=== PATIENT | male | born 1995 | race Caucasian/White ===

== ENCOUNTER 2022-08-03 13:56 | Outpatient (REF) | payer OTHER, SELFPAY ==
--- NOTE | ~2022-08-03 | XR_ITS ---
EXAMINATION: XR WRIST, LEFT XR HAND, LEFT CLINICAL INFORMATION: Pain in left hand COMPARISON: None available. TECHNIQUE: 3 views of the left hand including wrist FINDINGS: LEFT WRIST: Scaphoid: There is a transverse fracture through the waist of scaphoid with sclerotic change or possibly cystic change on either side of the fracture. Normal alignment. LEFT HAND: There is subtle areas of lucency at the articular surface of the base of the second metacarpal as well as along the radial cortex of the metaphysis. Findings compatible intra-articular fracture age indeterminant. Surrounding bones joints and soft tissues unremarkable. 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 LEFT HAND: Intra-articular fracture of the base of the second metacarpal age indeterminant.
== END 2022-08-03 13:57 | disposition home or self-care (01) ==
LOC: HO.HMGCX 13:56
PROVIDERS: Visit Provider Physician Assistant
DX: M79.642 Pain in left hand (principal)
CPT/HCPCS: 73110; 73130

== ENCOUNTER 2022-08-18 08:07 | Outpatient (REF) | payer OTHER, SELFPAY ==
--- NOTE | ~2022-08-18 | XR_ITS ---
EXAMINATION: XR HAND, LEFT CLINICAL INFORMATION: Pain COMPARISON: Previous x-ray July 2022 and left forearm x-ray May 2017 TECHNIQUE: PA, lateral, and oblique views of the left hand. 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 This is similar to previous exams. More recent-appearing nondisplaced intra-articular fracture of the base of the second proximal phalanx at the RETIREMENT joint. This does not appear appreciably changed from recent exam. No other fracture. Joint spaces are otherwise normal. Soft tissues are normal. 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 More recent-appearing nondisplaced intra-articular fracture of the proximal phalanx of the second finger intra-articular with the RETIREMENT joint.
== END 2022-08-18 08:08 | disposition home or self-care (01) ==
LOC: HO.HOSX 08:07
PROVIDERS: Visit Provider Orthopaedic Surgery
DX: S62.311A Displaced fracture of base of second metacarpal bone, left hand, initial encounter for closed fracture (principal); S62.002K Unspecified fracture of navicular [scaphoid] bone of left wrist, subsequent encounter for fracture with nonunion
CPT/HCPCS: 73130; 99202

== ENCOUNTER 2022-09-16 10:40 | Outpatient (REF) | payer OTHER, SELFPAY ==
--- NOTE | ~2022-09-16 | CT_ITS ---
EXAMINATION: CT scan of the left wrist CLINICAL INFORMATION: Fracture of navicular COMPARISON: X-rays of the left hand most recent 08/18/2022 TECHNIQUE: CT scan left wrist is performed with reconstruction imaging performed at the acquisition workstation FINDINGS: Scaphoid: There is a nondisplaced ununited fracture of the waist of scaphoid. The cystic changes crossing both sides of the fracture is some sclerosis across the fracture. No fragmentation of the proximal pole. Fracture may extend to the distal articular surface of the scaphoid at the triscaphoid joint. Remaining bones joints and soft tissues are unremarkable. CT/CT wrist LT wo IV con IMPRESSION: Ununited fracture of the waist of the scaphoid. Question extension of the fracture to the triscaphoid joint
== END 2022-09-16 10:41 | disposition home or self-care (01) ==
LOC: HO.CT 10:40
PROVIDERS: Visit Provider Orthopaedic Surgery
DX: S62.002K Unspecified fracture of navicular [scaphoid] bone of left wrist, subsequent encounter for fracture with nonunion (principal); X58.XXXD Exposure to other specified factors, subsequent encounter
CPT/HCPCS: 73200